=== PATIENT | male | born 1955 | race American Indian/Alaskan Native ===

== ENCOUNTER 2016-10-24 20:52 | Emergency (ER) | payer SELFPAY | END 2016-10-24 23:25 | disposition left against medical advice (07) | LOC: ED 20:52 | DX: S61.219A Laceration without foreign body of unspecified finger without damage to nail, initial encounter (principal); Z53.21 Procedure and treatment not carried out due to patient leaving prior to being seen by health care provider ==

== ENCOUNTER 2016-10-25 13:42 | Emergency (ER) | payer OTHER ==
[2016-10-25 14:09] VITALS: BP 153/94
[2016-10-25] MEDS ORDERED: NACL 0.9% IR ONE (15:28)
[2016-10-25] MEDS ORDERED: TRIPLE ANTIBIOTIC TP ONE (15:28)
[2016-10-25] MEDS ORDERED: BOOSTRIX IM ONE (15:28)
--- NOTE | 2016-10-25 15:30 | Emergency Department Report ---
HPI - General Chief Complaint: Extremity Injury, Upper Time Seen by Provider: 10/25/16 14:56 - HPI HPI: 61-year-old male presents today with a cut on his right ring finger. Patient states that he cut his finger last night at 9 PM while slicing potatoes on a food slicer. He describes his pain as a 0 out of 10 at this time. Bleeding has been controlled. Tetanus status unknown. Denies fever, chills, nausea, vomiting, chest pain, shortness of breath, abdominal pain. ED Past Medical Hx - Past Medical History Previous Medical History?: Yes Hx Congestive Heart Failure: Yes Hx HIV: Yes - Surgical History Past Surgical History?: Yes Hx Pacemaker: Yes Hx Internal Defibrillator: Yes - Social History Smoking Status: Current Every Day Smoker Substance Use Type: Prescribed - Medications Home Medications: Home Medications Medication Instructions Recorded Confirmed Last Taken Type Abacavir [Ziagen TAB] 300 mg PO BID 06/07/16 06/07/16 Unknown History Atazanavir [Reyataz] 300 mg PO DAILY 06/07/16 06/07/16 Unknown History Gabapentin [Neurontin] 300 mg PO BID 06/07/16 06/07/16 Unknown History Gemfibrozil [Lopid] 600 mg PO BID 06/07/16 06/07/16 Unknown History Metoprolol [Lopressor TAB] 50 mg PO BID #60 tablet 06/07/16 Unknown Rx Ritonavir [Norvir] 100 mg PO QDAY 06/07/16 06/07/16 Unknown History Sotalol HCl [Sotalol] 160 mg PO QDAY 06/07/16 06/07/16 Unknown History metFORMIN [Glucophage] 1,000 mg PO QDAY 06/07/16 06/07/16 Unknown History ED Review of Systems ROS: Stated complaint: RT HAND RING FINGER LAC Other details as noted in HPI Constitutional: denies: chills, fever, malaise Eyes: denies: eye pain ENT: denies: ear pain, throat pain, congestion Respiratory: denies: cough, shortness of breath, wheezing Cardiovascular: denies: chest pain, palpitations Endocrine: no symptoms reported Gastrointestinal: denies: abdominal pain, nausea, vomiting Neurological: denies: headache, weakness, numbness, paresthesias Physical Exam - Physical Exam Vital Signs: Vital Signs 10/25/16 14:06 Temperature 97.6 F Pulse Rate 69 Respiratory 18 Rate Blood Pressure 153/94 O2 Sat by Pulse 99 Oximetry Physical Exam: GENERAL: The patient is well-developed and well-nourished. Patient is in NAD. HEAD: Normocephalic. Atraumatic. CHEST/LUNGS: Clear to auscultation throughout. HEART/CARDIOVASCULAR: Regular rate and rhythm. No murmurs, rubs or gallops. ABDOMEN: Abdomen is soft, nontender. No guarding or rebound tenderness. RIGHT HAND: A 1 cm superficial irregular laceration noted of the tip of right 4th digit. Positive for nail involvement. No active bleeding. Normal sensation. 2 point discrimination intact. Peripheral pulses intact. Capillary refill less than 2 seconds. NEURO: Alert and oriented x 3. Normal gait. ED Course Vital Signs 10/25/16 14:06 Temperature 97.6 F Pulse Rate 69 Respiratory 18 Rate Blood Pressure 153/94 O2 Sat by Pulse 99 Oximetry ED Medical Decision Making - Lab Data Vital Signs 10/25/16 14:06 Temperature 97.6 F Pulse Rate 69 Respiratory 18 Rate Blood Pressure 153/94 O2 Sat by Pulse 99 Oximetry - Medical Decision Making 61-year-old male presents today with an irregular superficial laceration to his right ring finger that occurred last night. The wound was copiously irrigated and cleaned with Betadine. The wound was dressed. His tetanus status was updated today. Patient is in no acute distress at this time. He will be discharged home and is encouraged to follow up with a primary care provider. He is encouraged to return to the emergency room for any worsening symptoms. Critical care attestation.: If time is entered above; I have spent that time in minutes in the direct care of this critically ill patient, excluding procedure time. ED Disposition Clinical Impression: Laceration of finger Qualifiers: Encounter type: initial encounter Qualified Code(s): S61.219A - Laceration without foreign body of unspecified finger without damage to nail, initial encounter Disposition: DISCHARGED TO HOME OR SELFCARE Is pt being admited?: No Does the pt Need Aspirin: No Condition: Stable Instructions: Finger Laceration (ED) Additional Instructions: Follow-up with primary care provider. Return to the emergency department if symptoms worsen. Referrals: PRIMARY CARE, [Primary Care Provider] - 3-5 Days [facility] [place] [Outside] - 3-5 Days Forms: Work/School Release Form(ED) Time of Disposition: 16:43
== END 2016-10-25 16:52 | disposition home or self-care (01) ==
LOC: ED 13:42
DX: S61.214A Laceration without foreign body of right ring finger without damage to nail, initial encounter (principal); I50.9 Heart failure, unspecified; F17.200 Nicotine dependence, unspecified, uncomplicated; Z91.013 Allergy to seafood; Z95.810 Presence of automatic (implantable) cardiac defibrillator; Z95.818 Presence of other cardiac implants and grafts; W26.8XXA Contact with other sharp object(s), not elsewhere classified, initial encounter; Y93.89 Activity, other specified; Y92.89 Other specified places as the place of occurrence of the external cause; Y99.8 Other external cause status
CPT/HCPCS: 90471; 90715; A6250

== ENCOUNTER 2016-11-24 03:03 | Emergency (ER) | payer SELFPAY ==
[2016-11-24] MEDS ORDERED: DUONEB 0.5 MG-3 MG/3 ML SOLN IH ONE (10:19)
[2016-11-24] MEDS ORDERED: TESSALON PERLES PO ONE (10:20)
[2016-11-24] MEDS ORDERED: MOTRIN PO ONE (10:20)
--- NOTE | 2016-11-24 10:24 | Emergency Department Report ---
ED General Adult HPI - General Chief complaint: Upper Respiratory Infection Stated complaint: BAD COLD, FEVER Time Seen by Provider: 11/24/16 10:11 Source: patient Mode of arrival: Ambulatory Limitations: No Limitations - History of Present Illness Initial comments: PT c/o a bad cold x 2 days. PT states he feels achy, has a sore throat and has a cough. PT states he thinks this started because he was helping his brother work on his car and he was outside and around a lot of pollen. PT has a hx of PNA and states he had it years ago. PT has hx of HIV, gets meds from [place] Complaint: bad cold Onset/Timin -: Gradual Location: mouth (throat), chest Severity scale (0 -10): 8 Quality: aching (body ), other (sore throat ) Consistency: constant Improves with: none Worsens with: eating, other (swallowing ) Associated Symptoms: cough, fever/chills. denies: nausea/vomiting, shortness of breath Treatments Prior to Arrival: none - Related Data Home Medications Medication Instructions Recorded Confirmed Last Taken Abacavir [Ziagen TAB] 300 mg PO BID 06/07/16 11/24/16 1 Day Ago Atazanavir [Reyataz] 300 mg PO DAILY 06/07/16 11/24/16 1 Day Ago Gabapentin [Neurontin] 300 mg PO BID 06/07/16 11/24/16 1 Day Ago Gemfibrozil [Lopid] 600 mg PO BID 06/07/16 06/07/16 Unknown Ritonavir [Norvir] 100 mg PO QDAY 06/07/16 11/24/16 Unknown Sotalol HCl [Sotalol] 160 mg PO QDAY 06/07/16 11/24/16 Unknown metFORMIN [Glucophage] 1,000 mg PO QDAY 06/07/16 11/24/16 1 Day Ago Dabigatran [Pradaxa] 150 mg PO BID 11/24/16 11/24/16 1 Day Ago Previous Rx's Medication Instructions Recorded Last Taken Type Metoprolol [Lopressor TAB] 50 mg PO BID #60 tablet 06/07/16 1 Day Ago Rx Albuterol Sulfate [Ventolin HFA] 2 puff IH Q4H PRN #1 hfa.aer.ad 11/24/16 Unknown Rx Benzonatate [Tessalon Perles] 100 mg PO Q8HR PRN #12 capsule 11/24/16 Unknown Rx Levofloxacin [Levaquin] 750 mg PO QDAY #5 tablet 11/24/16 Unknown Rx Sulfamethoxazole/Trimethoprim 1 each PO BID #20 tablet 11/24/16 Unknown Rx [Bactrim DS TAB] Allergies Allergy/AdvReac Type Severity Reaction Status Date / Time shellfish derived Allergy Anaphylaxis Verified 06/07/16 03:35 ED Review of Systems ROS: Stated complaint: BAD COLD, FEVER Other details as noted in HPI Comment: All other systems reviewed and negative Constitutional: fever (subjective ). denies: chills ENT: throat pain. denies: congestion Respiratory: cough, other (productive, yellow sputum). denies: shortness of breath, wheezing Cardiovascular: denies: chest pain Gastrointestinal: denies: abdominal pain, nausea, vomiting, diarrhea ED Past Medical Hx - Past Medical History Previous Medical History?: Yes Hx Congestive Heart Failure: Yes Hx Diabetes: Yes (diet controlled now) Hx Asthma: Yes Hx HIV: Yes - Surgical History Past Surgical History?: Yes Hx Pacemaker: Yes Hx Internal Defibrillator: Yes - Social History Smoking Status: Never Smoker Substance Use Type: None - Medications Home Medications: Home Medications Medication Instructions Recorded Confirmed Last Taken Type Abacavir [Ziagen TAB] 300 mg PO BID 06/07/16 11/24/16 1 Day Ago History Atazanavir [Reyataz] 300 mg PO DAILY 06/07/16 11/24/16 1 Day Ago History Gabapentin [Neurontin] 300 mg PO BID 06/07/16 11/24/16 1 Day Ago History Gemfibrozil [Lopid] 600 mg PO BID 06/07/16 06/07/16 Unknown History Metoprolol [Lopressor TAB] 50 mg PO BID #60 tablet 06/07/16 11/24/16 1 Day Ago Rx Ritonavir [Norvir] 100 mg PO QDAY 06/07/16 11/24/16 Unknown History Sotalol HCl [Sotalol] 160 mg PO QDAY 06/07/16 11/24/16 Unknown History metFORMIN [Glucophage] 1,000 mg PO QDAY 06/07/16 11/24/16 1 Day Ago History Albuterol Sulfate [Ventolin HFA] 2 puff IH Q4H PRN #1 hfa.aer.ad 11/24/16 Unknown Rx Benzonatate [Tessalon Perles] 100 mg PO Q8HR PRN #12 capsule 11/24/16 Unknown Rx Dabigatran [Pradaxa] 150 mg PO BID 11/24/16 11/24/16 1 Day Ago History Levofloxacin [Levaquin] 750 mg PO QDAY #5 tablet 11/24/16 Unknown Rx Sulfamethoxazole/Trimethoprim 1 each PO BID #20 tablet 11/24/16 Unknown Rx [Bactrim DS TAB] ED Physical Exam - General Limitations: No Limitations General appearance: alert, in no apparent distress - Head Head exam: Present: atraumatic, normocephalic - Eye Eye exam: Present: normal appearance, PERRL, EOMI. Absent: conjunctival injection - ENT ENT exam: Present: normal exam, normal orophraynx, mucous membranes moist, TM's normal bilaterally, normal external ear exam - Neck Neck exam: Present: normal inspection, full ROM. Absent: tenderness, lymphadenopathy - Respiratory Respiratory exam: Present: other (productive cough noted during exam, yellow sputum noted. PT with RLL crackles). Absent: respiratory distress, wheezes - Cardiovascular Cardiovascular Exam: Present: regular rate, normal rhythm, normal heart sounds - GI/Abdominal GI/Abdominal exam: Present: soft. Absent: tenderness - Extremities Exam Extremities exam: Present: normal inspection, full ROM. Absent: tenderness - Back Exam Back exam: Present: normal inspection, full ROM. Absent: tenderness, CVA tenderness (R), CVA tenderness (L) - Neurological Exam Neurological exam: Present: alert, oriented X3, normal gait - Psychiatric Psychiatric exam: Present: normal affect, normal mood - Skin Skin exam: Present: warm, dry, intact ED Course Vital Signs 11/24/16 11/24/16 11/24/16 04:22 10:44 11:10 Temperature 98.5 F Pulse Rate 75 Pulse Rate [ 71 79 Posterior Bilateral Throughout] Respiratory 18 Rate Respiratory 16 18 Rate [Posterior Bilateral Throughout] Blood Pressure 141/92 Blood Pressure [Left] O2 Sat by Pulse 98 Oximetry 11/24/16 11:21 Temperature Pulse Rate 75 Pulse Rate [ Posterior Bilateral Throughout] Respiratory 18 Rate Respiratory Rate [Posterior Bilateral Throughout] Blood Pressure Blood Pressure 174/76 [Left] O2 Sat by Pulse 100 Oximetry - Reevaluation(s) Reevaluation #1: 11/24/16 10:25 PT aware of plan of care. Reevaluation #2: 11/24/16 11:03 PT states his cough has improved sp neb. PT is aware of his XR results. Dr edouard is aware of pt and advises due to pt's hx he be treated with both levaquin and bactrim. PT given strict return precautions. PT has no questions at this time. - Pulse Oximetry Interpretation Digit-Finger Initial Pulse Oximetry Readin Actions Taken: none ED Medical Decision Making - Radiology Data Radiology results: report reviewed CXR: questionable early left lower pna - Differential Diagnosis pna, bronchitis, uri Critical Care Time: No Critical care attestation.: If time is entered above; I have spent that time in minutes in the direct care of this critically ill patient, excluding procedure time. ED Disposition Clinical Impression: Left lower lobe pneumonia Qualifiers: Pneumonia type: due to unspecified organism Qualified Code(s): J18.1 - Lobar pneumonia, unspecified organism Disposition: DISCHARGED TO HOME OR SELFCARE Is pt being admited?: No Does the pt Need Aspirin: No Condition: Stable Instructions: Community-acquired Pneumonia (ED), Bacterial Pneumonia (ED) Additional Instructions[facility] Return to the ED if worsening or concerns Prescriptions: Albuterol Sulfate [Ventolin HFA] 2 puff IH Q4H PRN #1 hfa.aer.ad PRN Reason: Shortness Of Breath Benzonatate [Tessalon Perles] 100 mg PO Q8HR PRN #12 capsule PRN Reason: Cough Levofloxacin [Levaquin] 750 mg PO QDAY #5 tablet Sulfamethoxazole/Trimethoprim [Bactrim DS TAB] 1 each PO BID #20 tablet Referrals: PRIMARY CARE,MD [Primary Care Provider] - 3-5 Days Forms: Accompanied Note, Work/School Release Form(ED) Time of Disposition: 11:06
--- NOTE | 2016-11-24 10:39 | XRay Report ---
ROUTINE CHEST, TWO VIEWS: HISTORY: Fever, cough, HIV-positive. There is very subtle opacity in the left lower lobe which appears to be new since 06/07/16. This may represent a developing infiltrate. The remainder of the lungs are clear. No large consolidation, pleural effusion or pneumothorax. Normal heart size. Pacemaker device is unchanged. IMPRESSION: Questionable, early left lower lobe infiltrate.
[2016-11-24 11:22] VITALS: BP 174/76
== END 2016-11-24 11:22 | disposition home or self-care (01) ==
LOC: ED 03:03
DX: J18.1 Lobar pneumonia, unspecified organism (principal); I50.9 Heart failure, unspecified; E11.9 Type 2 diabetes mellitus without complications; J45.909 Unspecified asthma, uncomplicated; Z95.0 Presence of cardiac pacemaker; Z91.013 Allergy to seafood
CPT/HCPCS: 71020; 87116; 87430; 94640